=== PATIENT | male | born 1950 | race Caucasian/White ===

== ENCOUNTER 2022-03-04 15:51 | Inpatient (IN) | payer OTHER ==
[~2022-03-04] VITALS: Ht 200.7 cm; Wt 139.8 kg
[2022-03-04 16:26] LABS: BASOPHILS ABSOLUTE AUTO 0.03 K/mm3 (0.00-0.23); BASOPHILS PERCENT AUTO 0 % (0-2); EOSINOPHILS ABSOLUTE AUTO 0.01 K/mm3 (0.00-0.68); EOSINOPHILS PERCENT AUTO 0 % (0-6); Hematocrit 39.5 % (37.0-53.0); IMMATURE GRAN ABSOLUTE AUTO 0.04 K/mm3 (0.00-0.10); IMMATURE GRAN PERCENT AUTO 0 % (0-1); LYMPHOCYTES ABSOLUTE AUTO 1.08 K/mm3 (0.84-5.20); LYMPHOCYTES PERCENT AUTO 9 % (21-46); MONOCYTES PERCENT AUTO 6 % (4-13); Mean Corpuscular HGB 31.9 pg (26.0-34.0); Mean Corpuscular HGB Conc 35.4 g/dL (31.5-36.5); Mean Corpuscular Volume 90 fL (80-100); Mean Platelet Volume 10.8 fL (9.1-12.4); NEUTROPHILS PERCENT AUTO 85 % (41-73); Platelet Count 205 K/mm3 (150-400); RDW Coefficient Variation 12.5 % (11.7-14.2); RDW Standard Deviation 41.1 fL (35.1-46.3); Red Blood Cell Count 4.39 M/mm3 (4.30-5.90); White Blood Cell Count 12.16 K/mm3 (4.00-11.30)
[2022-03-04 16:44] LABS: Albumin, Blood 3.7 g/dL (3.4-5.0); Albumin/Globulin Ratio 1.1 (0.8-1.8); Bilirubin, Total 1.3 mg/dL (0.1-1.0); Bun/Creatinine Ratio 17.7 (12.0-20.0); Calcium, Blood 9.1 mg/dL (8.5-10.1); Creatinine, Blood 0.56 mg/dL (0.60-1.20); Globulin, Blood 3.3 g/dL (2.2-4.0); International Normalized Ratio 1.08; Potassium, Blood 3.7 mmol/L (3.5-5.5); Prothrombin Time Results 11.3 Sec (9.7-11.5)
[2022-03-04] MEDS ORDERED: Lisinopril-Hct1 EAC4 PO (17:22)
[2022-03-04] MEDS ORDERED: HYDROCODONE-AC1 EA18 PO (17:22)
--- NOTE | 2022-03-04 23:15 | NUR ---
ASSUMED CARE OF PATIENT AT APPROXIMATELY 2140 FROM ED NATALY BUSTOS. PATIENT ARRIVED TO PCU VIA STRETCHER; MAX ASSIST TRANSFER WITH SLIDE SHEET FROM ED TO PCU STRETCHER. PATIENT NONVERBAL; ABLE TO TRACK AT TIMES; STUCK TONGUE OUT WHEN ASKED TO SMILE; RIGHT SIDE DEFICIT IN RIGHT ARM AND LEG; NO RESPONSE; RIGHT FACIAL DROOP; NORMAL STRENGTH AND ABLE TO FOLLOW COMMANDS WITH LEFT ARM AND LEGS. PATIENT ARRIVED INCONTINENT OF URINE; GOWN CHANGED AND ATTENDS PLACED; PATIENT APPERED TO BE EMBARRASSED PULLING DOWN GOWN WHEN ATTEND CHANGES. ABLE TO FOLLOW PEN LIGHT WITH BOTH EYES BUT EASILY DISTRACTED. ATTEMPTED TO USE PICTURE BOARD BUT NOT ABLE TO. HOLDS CALL LIGHT IN LEFT ARM BUT DOESNT USE IT. SB ON TELE; OXYGEN SATURATION ABOVE 90% ON ROOM AIR. ADMISSION PARTIALLY COMPLETE; NO HEALTH HISTORY AVAILABLE. IVF STARTED PER ORDER. DAUGHTER GRETCHEN CALLED AND REPORTED SHE IS IN [place] AND WILL BE FLYING IN TOMORROW WITH OTHER FAMILY. PATIENT'S BELONGINGS WERE SENT UP FROM ER IN BELONGING BAG; MEDICATIONS, PHONE, GLASSES, AND WALLET. MEDICATIONS WALKED UP TO PHARMACY AND CURRENTLY BEING HELD. SECURITY CALLED TO TAKE WALLET FOR HOLDING.
--- NOTE | 2022-03-05 00:28 | NUR ---
BLACK WALLET GIVEN TO SECURITY; SLIP NUMBER [id number] PLACED IN CHART
[2022-03-05 04:07] LABS: BASOPHILS ABSOLUTE AUTO 0.03 K/mm3 (0.00-0.23); BASOPHILS PERCENT AUTO 0 % (0-2); EOSINOPHILS ABSOLUTE AUTO 0.05 K/mm3 (0.00-0.68); EOSINOPHILS PERCENT AUTO 1 % (0-6); Hematocrit 38.1 % (37.0-53.0); Hemoglobin 13.2 g/dL (13.5-17.5); IMMATURE GRAN ABSOLUTE AUTO 0.03 K/mm3 (0.00-0.10); IMMATURE GRAN PERCENT AUTO 0 % (0-1); LYMPHOCYTES ABSOLUTE AUTO 1.81 K/mm3 (0.84-5.20); LYMPHOCYTES PERCENT AUTO 18 % (21-46); MONOCYTES PERCENT AUTO 10 % (4-13); Mean Corpuscular HGB 31.1 pg (26.0-34.0); Mean Corpuscular HGB Conc 34.6 g/dL (31.5-36.5); Mean Corpuscular Volume 90 fL (80-100); Mean Platelet Volume 10.7 fL (9.1-12.4); NEUTROPHILS ABSOLUTE AUTO 7.06 K/mm3 (1.96-9.15); NEUTROPHILS PERCENT AUTO 71 % (41-73); Platelet Count 206 K/mm3 (150-400); RDW Coefficient Variation 12.5 % (11.7-14.2); RDW Standard Deviation 41.1 fL (35.1-46.3); Red Blood Cell Count 4.24 M/mm3 (4.30-5.90); White Blood Cell Count 9.98 K/mm3 (4.00-11.30)
[2022-03-05 04:24] LABS: Albumin, Blood 3.4 g/dL (3.4-5.0); Albumin/Globulin Ratio 1.1 (0.8-1.8); Bilirubin, Total 1.4 mg/dL (0.1-1.0); Bun/Creatinine Ratio 15.6 (12.0-20.0); Calcium, Blood 8.8 mg/dL (8.5-10.1); Creatinine, Blood 0.64 mg/dL (0.60-1.20); Globulin, Blood 3.1 g/dL (2.2-4.0); Potassium, Blood 3.5 mmol/L (3.5-5.5); Total Protein, Blood 6.5 g/dL (6.4-8.2)
--- NOTE | 2022-03-05 06:23 | NUR ---
PATIENT SLEPT ABOUT SEVEN HOURS LAST NIGHT OFF AND ON. PATIENT ABLE TO TRACK STAFF BETTER; NO OTHER CHANGES; INCONTINENT OF URINE; Q2H TURN.
--- NOTE | 2022-03-05 17:17 | NUR ---
SHIFT SUMMARY PT HAS BEEN RESTING IN BED THROUGHOUT THE DAY. THIS AM PT DID NOT CONSISTENTLY RESPOND TO STIMULI, AND INCONSISTENTLY FOLLOWED COMMANDS. THIS AFTERNOON PT WAS ABLE TO RECOGNIZE FAMILY MEMBERS AND HAS ATTEMPTED TO TALK THOUGH NO INTELLIGBLE WORDS WERE MADE, JUST INCOHERENT MUMBLES. THIS AM RIGHT ARM AND LEG WERE FLACCID, THE DAY PROGRESSED SOME GROSS REFLEXIVE MOVEMENT WAS NOTED TO BOTH RIGHT ARM AND LEG. PHYSICAL THERAPY PERFORMED AN EVALUATION OF THE PT THIS AM. HEART RATE HAS BEEN A CONSISTENT BRADYCARDIA OF 48-52 BPM, ALL OTHER VITAL SIGNS STABLE.
--- NOTE | 2022-03-06 06:07 | NUR ---
SHIFT SUMMARY PT OPENS EYES TO VERBAL STIMULI, FAMILY AT BEDSIDE AT BEGINNING OF SHIFT. PT HAS SMALL, GROSS MOVEMENTS IN R LEG. NO MOVEMENT/FLACCID IN R ARM. FACIAL DROOPING ON R SIDE. PT ATTEMPTS TO SPEAK BUT HAS GARBLED/INCOMPREHENSIBLE SPEECH. R PUPIL 3 AND SLUGGISH, L PUPIL 3 AND BRISK. PT PROVIDED WITH ORAL CARE Q 4 HRS. TURNED Q [address] AND DRAINING TO GRAVITY. OXYGEN SATURATION MAINTAINED ABOVE 94% ON RA. BP STABLE. HR BRADYCARDIC, 50'S. WHEN PT ASKED IF IN PAIN NODS HEAD "NO." CALL LIGHT WIHIN REACH FOR LEFT HAND. BED ALARM IN PLACE. WILL CONT TO MONITOR UNTIL REPORT GIVEN TO DAYSHIFT RN.
[2022-03-06 12:53] LABS: Cholesterol 214 mg/dL (50-200); HDL Cholesterol 43 mg/dL (>39); LDL/HDL RATIO 3.5; Low Density Lipoprotein Chol 151 mg/dL (0-110); Triglycerides 102 mg/dL (30-160); Very Low Density Lipoprot Chol 20 mg/dL (6-32)
--- NOTE | 2022-03-06 13:06 | NUR ---
PATIENT WAS INDEPENDENT EATING HIS LUNCH. PATIENT WAS OBSERVED EATING INSTRUCTED BY THE RN. FOOD WAS SPILLING OUT OF THE RIGHT SIDE FOR THE FIRST COUPLE BITES, THEN SLOWED DOWN PATIENT WAS EATING. PATIENT WAS ABLE TO EAT 100% OF HIS TRAY AND 240 ML OF MILK.
--- NOTE | 2022-03-06 17:42 | NUR ---
SHIFT SUMMARY PT IS ALERT AND IS UNABLE TO ANSWER ANY ORIENTATION QUESTIONS. PT WORKED WITH PHYSICAL AND OCCUPATIONAL THERAPIES TODAY. PT DOES NOT APPEAR TO BE IN ANY DISTRESS OR DISCOMFORT. FAMILY HAS BEEN AT BEDSIDE SEVERAL TIMES THROUGHOUT THE DAY. PT CONVERTED FROM SINUS BRADYCARDIA TO ATRIAL FIBRILLATION AT APPROXIMATELY 0800. BLOOD PRESSURE HAS SLOWLY FALLEN THROUGHOUT THE DAY FROM 170-125 SYSTOLIC. PT APPEARS FRUSTRATED WHEN ATTEMPTING TO COMMUNICATE THOUGH THEY ARE WILLING PARTICIPANTS IN CARES.
--- NOTE | 2022-03-06 18:21 | NUR ---
PATIENT WAS OBSERVED WHILE EATING DINNER TO MAKE SURE HE DIDN'T ASPIRATE. PATIENT WAS ENCOURAGED TO USE THE SPOON, BUT PREFERRED SIPPING HIS PUREE DIET. MILD COUGHS OCCURRED WHILE EATING. PATIENT TOOK IT SLOWER THEN LUNCH, AND WAS ABLE TO PUSH THE TABLE AWAY WHEN HE FINISHED. PATIENT IS SITTING UP IN BED AFTER HIS MEAL, ORDERS FROM SPEECH THERAPY. CALL LIGHT IN REACH.
--- NOTE | 2022-03-07 06:08 | NUR ---
SHIFT SUMMARY PT ALERT AND ORIENTED X 4. HR STABLE, AFIB T/O SHIFT. BP STABLE. MAP ABOVE 65. OXYGEN SATURATION MAINTAINED ABOVE 95% ON RA. PT REFUSING Q 2 TURNS AT TIMES. RANGE OF MOTION PERFORMED T/O SHIFT ON R ARM AND R LEG. CONDOM CATH IN PLACE AND DRAINING. NO NEURO CHANGES T/O SHIFT. R ARM FLACID, R LEG HAS MINIMAL GROSS MOVEMENT. R PUPIL SLUGGISH. FULL RANGE OF MOTION IN L ARM AND L LEG. L PUPIL BRISK. PT FOLLOWS DIRECTIONS. FAMILY AT BEDSIDE AT BEGINNING OF SHIFT. DAUGHTER GRETCHEN UPDATED AT END OF SHIFT ON PT STATUS. BED ALARM IN PLACE. CALL LIGHT WITHIN REACH OF L HAND. WILL CONT TO MONITOR UNTIL REPORT GIVEN TO POLO RN.
[2022-03-07 15:44] LABS: Influenza A, PCR NEGATIVE (NEGATIVE); Influenza B, PCR NEGATIVE (NEGATIVE); Resp Syncytial Virus, PCR NEGATIVE (NEGATIVE); SARS-Cov-2 (COVID-19) PCR, MMC NEGATIVE (NEGATIVE)
--- NOTE | 2022-03-07 17:55 | NUR ---
SHIFT SUMMARY SPEECH IS INCOMPREHENSIBLE AND GARBLED. HE APPEARED TO RECOGNIZE/BE FAMILIAR WITH DAUGHTERS LINN AND CARLITO WHO WERE AT BEDSIDE THIS AM. HE APPEARS FRUSTRATED WITH COMMUNICATION BOARD AND DID NOT WANT TO USE IT DURING SHIFT. NO CHANGES REGARDING RIGHT SIDED DEFICIT. VITAL SIGNS ARE STABLE. PER AM TELE REPORT PT REMAINS IN AFIB 90-100 AND HE HAS REMAINED ON ROOM AIR WITH SPO2 >95%. PHYSICAL THERAPY, OCCUPATIONAL THERAPY, AND SPEECH THERAPY WERE AT BEDSIDE DURING SHIFT. Q2 TURNING NOT PERFORMED DUE TO THERAPY SESSIONS WELL PT BEING REPOSITIONED AND PERFORMING THERAPY EXERCISES DURING THE AM. PT REPOSITIONED Q2 TO PREVENT SKIN BREAKDOWN AFTER THERAPY SESSIONS COMPLETED. ROM ON RIGHT SIDE PERFORMED BY THIS NURSE DURING ORAL CARE. PT IS COOPERATIVE IN LIFTING RIGHT HAND WITH HIS LEFT HAND TO PERFORM ROM. CONDOM CATHETER IN PLACE AND DRAINING APPROPRIATELY. RIGHT SIDE FOOT DROP BOOT IN PLACE. IV IN LEFT HAND IS SALINE LOCKED. HE WAS A FEEDING ASSIST. NO OTHER ACUTE CHANGES NOTED. WILL CONTINUE TO MONITOR UNTIL REPORT GIVEN.
--- NOTE | 2022-03-08 06:00 | NUR ---
VENEER DRIER SUMMARY PT IS ALERT BUT IS UNABLE TO COMMUNICATE VERBALLY DUE TO APHASIA. PT'S R ARM AND LEG STILL FLACCID. PT DOES FOLLOW COMMANDS AND IS ABLE TO USE HIS LUE TO PERFORM TASKS EVEN USING HIS REMOTE TO CHANGE CHANNELS ON THE TV. PT ATTEMPTS TO COMMUNICATE VERBALLY BUT DUE TO GARBLED SPEECH IS UNABLE AND BECOMES FRUSTRATED. PT REFUSED REPOSITIONING THIS SHIFT BUT DID ALLOW US TO BOOST HIM UP INTO THE BED MULTIPLE TIMES. VSS AND AFEBRILE. O2 SATS >92% ON RM AIR. PT ABLE TO SLEEP FOR MOST OF THE NIGHT W CALL LIGHT WITHIN REACH. WILL REPORT TO ONCOMING RN.
--- NOTE | 2022-03-08 17:07 | NUR ---
REPORT CALLED TO ARIANA INGRAM. PT TO BE TRANSPORTED TO ROOM 313, FAMILY MADE AWARE OF MOVE, ALL BELONGINGS SENT WITH PT.
--- NOTE | 2022-03-08 18:16 | NUR ---
SHIFT SUMMARY PT WAS TRANSFERRED TO THE FLOOR WITH ALL HIS BELONGINGS AND HIS DAUGHTER, PT HAS APHASIA AND IS UNABLE TO SPEAK FOR HIMSELF, DAUGHTER HAVE A TENDENCY TO TALK OVER AND MAKE DECISIONS FOR THE PT THOUGH ENCOURAGED TO LET HIM BE SELF SUFFICIENT. HE MAKE FACIAL EXPRESSIONS INDICATING YES OR NO. PT FAMILY MEMBERS WERE CONCERNED "HE WAS BEING LEFT BACK HERE TO BE FORGOTTEN. INFORMED OF OUR HOURLY ROUNDING RULE AND OFFERED A TAB ALARM FOR EASIER USE OF A CALL LIGHT BUT THEY REFUSED. CLINICAL COORDINATER BROUGHT IN TO HELP THERAPUTICALLY COMMUNICATE WITH FMILY. IT WAS DECIDED THAT DUE TO STAFFING THE PT WOULD STAY IN THE CURRENT ROOM UNTIL THE AM AND THEN BE MOVED TO A BETTER ROOM. PT ALSO MOVED BACK TO PUREE DIET DUE TO FAMILY CONCERN OVER CHOKING.
--- NOTE | 2022-03-09 05:33 | NUR ---
PT IS ALERT, DYSPHASIC, ABLE TO ANSWER YES OR NO QUESTIONS THE BEST. R SIDE FLACCID WITH FACIAL DROOP, CONDOM CATH PLACED FOR INCONTINENCE, SOFT TOUCH CALL LIGHT PLACED.
--- NOTE | 2022-03-09 16:09 | NUR ---
TRANSFER PT WAS TRANSFERRED TO ROOM 364 PER [facility] REQUEST FOR LIFT ACCESS AND SO "HE WON'T BE SO ISOLATED BACK HERE" PT WAS UPSET ABOUT HAVING TO MOVE BUT COMPLIANT. REPORT GIVEN TO NATALY MCCRARY AND ALL PT BELONGINGS BROUGHT TO NEW ROOM.
--- NOTE | 2022-03-09 18:03 | NUR ---
SHIFT SUMMARY PATIENT TRANSFERRED FROM [facility]. PATIENT SETTLED INTO ROOM. PATIENT DENIES PAIN, NAUSEA, AND SHORTNESS OF BREATH. PATIENT IS A LIFT FOR TRANSFERS. PATIENT WAS ABLE TO STAND WITH PT TODAY. PATIENT IS A PUREE DIET, NECTAR THICK LIQUIDS. PATIENT IS 1:1 SUPERVISION FOR MEALS. PATIENT HAS SOME APHASIA AND COMMUNICATES WITH HAND GESTURES AND FACIAL EXPRESSIONS. PATIENT IS EATING AND DRINKING WELL. PATIENT IS VERY PLEASANT AND COOPERATIVE WITH CARE.
--- NOTE | 2022-03-10 05:25 | NUR ---
SHIFT SUMMARY ASSUMED CARE OF PT AROUND 1900. ORIENTATION DIFFICULT TO ASSESS DUE TO APHASIA. PT ABLE TO COMMUNICATE WITH HANDS AND NODS. PT R SIDE IS FLACCID. FOOT DROP SHOE ON T/O THE NIGHT. HEART SOUNDS REGULAR. LUNG SOUNDS CLEAR. PT WAS INCONTIENT T/O THE NIGHT. PT HAD NO ACUTE EVENTS. FAMILY WAS EDUCATED ABOUT VISITING HOURS.
--- NOTE | 2022-03-10 17:46 | NUR ---
SHIFT SUMMARY PATIENT DENIES PAIN, NAUSEA, AND SHORTNESS OF BREATH. PATIENT IS A LIFT FOR TRANSFERS. PATIENT HAS EXPRESSIVE APHASIA AND COMMUNICATES VIA HAND GESTURES AND SOME FACIAL EXPRESSIONS. PT AND OT WORKED WITH PATIENT THIS MORNING. THEY WRE ABLE TO GET PATIENT TO A RECLINER. PATIENT TOLERATED WELL. AROUND 11:30 PATIENT HAD A FALL. PATIENT WAS FOUND BY OT SITTING ON FLOOR NEXT TO BED. NO APPARENT INJURIES. CHARGE NURSE NOTIFIED. DR NOTIFIED. FAMILY NOTIFIED. PATIENT BACK INTO BED VIA LIFT. PATIENT IS EATING AND DRINKING WELL. PATIENT HAD MANY FAMILY MEMBERS VISIT TODAY. PATIENT IS PLEASANT AND COOPERATIVE WITH CARE.
--- NOTE | 2022-03-11 05:48 | NUR ---
PT IS ALERT, CAN ANSWER YES OR NO QUESTIONS UNABLE TO FORMULATE WORDS. R SIDE FACIAL DROOP, R ARM AND LEG FLACCID. LIFT TO TRANSFER. MEDS TO BE GIVEN CRUSHED IN SAUCE OR PUDDING. PUREE NECTAR THICK LIQUIDS.
--- NOTE | 2022-03-11 10:00 | NUR ---
PT PLEASANT COOP. FOLLOWS DIRECTION. RECOGNIZES FAMILY, FLACID ON RT. ANSWERS / NODS APPROP TO QUESTIONS. FOOT HAD COUPLE OF LIGHT TWITCHES WHILE DAUGHTER RUBBING LOTION ON FEET. LEFT SIDE IS WEAK. PT DENIES PAIN OR FEELING ON FULL RT SIDE. ANSWERS SOME QUESTIONS WITH NODS, MOSTLY YES, SOME NO. H/R IRREG, NO MURMUR NOTED. NO TELE. LUNGS CLEAR, RESP EASY, UNLABORED , ON R.A. BT 4 LOOSE STOOL REPORTED BY AIDE. VOIDS INCONT IN ATTENDS. BED IN LOW POSITION, CALL LITE IN REACH, CALLS APPROP
--- NOTE | 2022-03-11 11:45 | NUR ---
RT ARM FLACID. MOTIONED NO FEELING. LEFT MOSTLY FLACID. DID MOTION NO FEELING. DID OBSERVE PT MOVE RT LEG SLIGHTLY DURING DAUGHTER APPLY LOTION.
--- NOTE | 2022-03-11 18:31 | NUR ---
PT PLEASNT TODAY, UNABLE TO TALK WELL TO COMMUNICATE. NICOLETTE RICHARD. DOES HAVE WRITING BOARD, BUT NOT PROFICIENT. DAUGHTERS HERE TODAY. DID GIVE SLIGHT MOVEMENT IN RT LEG TODAY. ENCOURAGED TO MOVE FINGERS AND TOES. HAVING LOOSE STOOLS, NO ABX. WILL ASK FOR PROBIOTIC. NO OTHER CONCERNS NOTED. BED IN LOW POSITION, CALL LITE IN REACH, BED ALRM ON FOR SAFETY
--- NOTE | 2022-03-12 05:55 | NUR ---
PT IS ALERT, ORIENTED BUT IS UNABLE TO FORMULATE WORDS AT THIS TIME. SHAKES AND NODS HEAD FOR YES OR NO QUESTIONS. RIGHT SIDE ARM AMD LEG FLACCID WITH RIGHT SIDE FACIAL DROOP. INCONTINENT OF URINE AND STOOL THIS SHIFT. LOOSE STOOL X1.
--- NOTE | 2022-03-12 18:04 | NUR ---
TOOK OVER PT CARE AT 1525. NO ACUTE CHANGES AT THIS TIME. PT RESTING IN BED. R SIDE EFFECTED BY CVA. CALL LIGHT WITHIN REACH WILL CONTINUE TO MONITOR.
[2022-03-13 04:54] LABS: Albumin, Blood 3.1 g/dL (3.4-5.0); Anion Gap 7 mmol/L (6-16); Blood Urea Nitrogen 14 mg/dL (8-24); Bun/Creatinine Ratio 20.2 (12.0-20.0); CO2, Blood 27 mmol/L (21-32); Calcium, Blood 8.8 mg/dL (8.5-10.1); Chloride, Blood 106 mmol/L (98-108); Creatinine, Blood 0.69 mg/dL (0.60-1.20); Glomerular Filtration Rate 100 (60-); Glucose, Blood 167 mg/dL (70-99); Potassium, Blood 4.3 mmol/L (3.5-5.5); Sodium, Blood 140 mmol/L (136-145)
--- NOTE | 2022-03-13 05:10 | NUR ---
PT IS ALERT, DYSPHAGIC; UNABLE TO MAKE WORDS OR MOVE RIGHT SIDE OF BODY AFTER RECENT CVA. LOOSE STOOL X1 THIS SHIFT. PT IS INCONTINENT OF BOWEL AND BLADDER. BANANA FLAKES STARTED THIS SHIFT.
--- NOTE | 2022-03-13 17:08 | NUR ---
SHIFT SUMMARY PT WORKED WITH PHYSICAL THERAPY & OCCUPATIONAL THERAPY TODAY. STOOD AND TO SIDE OF BED WITH THEM. PT REMAINS A MAX 2P ASSIST FOR BED MOBILITY FROM HIS FLACCID R SIDE. PT HELPS PARTICIPATE IN CARE & BED MOBILITY. BLISTER TO R FOOT MARKED & PHOTOGRAPHED. DR. MARIA NOTIFIED THAT THE FAMILY REPORTS IT HAS WORSENED. DR. MARIA ALSO GAVE ORDER TO LEAVE IV OUT. A SMALL AREA OF SKIN BREAKDOWN LEFT WHERE THE BASE OF THE IV IS. THIS AREA WAS CLEANED & BANDAGED. NO OTHER ACUTE CHANGES IN ASSESSMENT AT THIS TIME. VS REVIEWED. PT RESTING IN BED. CALL LIGHT IN REACH.
--- NOTE | 2022-03-14 05:09 | NUR ---
PT IS ALERT, COMUNICATES BY NODDING HEAD, UNABLE TO FORM WORDS. RIGHT ARM AND LEG FLACCID, R FACIAL DROOP. INCONTINENT WEARING ATTENDS. NO DIARRHEA SO FAR THIS SHIFT.
--- NOTE | 2022-03-14 17:54 | NUR ---
SHIFT SUMMARY PT RECIEVED BEDBATH TODAAY. DRESSING TO R INNER HEEL REPLACED. NO OTHER ACUTE CHANGES IN ASSESSMENT AT THIS TIME. VS REVIEWED. PT RESTING IN BED. CALL LIGHT IN REACH. SHAKES HEAD NO WHEN ASKED IF HE NEEDS ANYTHING. AWAITING SNF PLACEMENT.
--- NOTE | 2022-03-15 04:01 | NUR ---
MANAGER SOCIAL SUMMARY AWAKE AT INTERVALS. CHANGED DUE TO INCONT A FEW TIMES. REPOSITIONED WITH ASSISTANCE OFTEN. ABLE TO ASSIST WITH LEFT SIDE, RIGHT SIDE IS TOTALLY FLACCID. DENIES FEELING IN RIGHT SIDE WELL. ASPIRATION PRECAUTIONS MAINTAINED. THICKENED LIQUIDS AND HOB ELEVATED WHEN DRINKING. DAUGHTER CALLED FOR UPDATE. NO NOTED S/S ACUTE DISTRESS. CALL LIGHT IN REACH
--- NOTE | 2022-03-15 18:44 | NUR ---
SHIFT SUMMARY- PT ALERT, ORIENTED TO SELF, SPEAKS NONSENSICALLY. DIFFICULT TO DETERMINE ANY OTHER OORINETATION D/T INABILITY TO COMMUNICATE EFFECTIVELY. RIGHT SIDE FLACID. PT REFUSED MORNING MEDICATIONS, PHYSICAL THERAPY ATTEMPTED TO GET HIM UP TO A CHAIR AND HE DECLINED TO WORK WITH THEM, HE REFUSED TO ALLOW OT TO PERFORM ROM EXERCISES. PT DID FEED HIMSELF 100% OF EACH MEAL TODAY, HE NEEDS TO BE MONITORED FOR SAFETY WHILE EATING. MEDS TO BE CRUSHED IN APPLESAUCE PER ST. PT IN BED, HAS DECLINED TO ALLOW STAFF TO MOVE HIM SEVERAL TIMES T/O THE DAY.
--- NOTE | 2022-03-16 05:45 | NUR ---
PT WITH SEVERE EXPRESSIVE APHASIA. PT UNABLE TO VERBALLY COMMUNICATE. PT ESTELLA TO MAKE GESTURES AND HAND MOTIONS TO WHAT HE WANTS AND DOESN'T WANT. PT REFUSED NIGHT MEDICATIONS. EDUCATED PT ON IMPORTANCE OF TAKING ELIQUIS TO PREVENT ANOTHER STROKE HOWEVER PT SHAKING HAND AND HEAD AND POINTING TOWARDS FLACCID RIGHT ARM/LEG. TRIED TO USED BOARD TO COMMUNICATE WITH PT HOWEVER HE PUSHED THAT AWAY. HARD TO CORRECTLY ASSESS BUT PT SEEMS TO BE HOPELESS IN HIS CURRENT SITUATION. AWARE OF PT REFUSING ELIQUIS. PER REPORT PT REFUSED ALL MEDICATIONS DURING THE DAY AND PT/OT. WILL CONTINUE TO ENCOURAGE PT. OTHERWISE NO NEW CHANGES NOTED OVERNIGHT.
--- NOTE | 2022-03-16 16:22 | NUR ---
Pt has been refusing therapy the past 2 days, and it is becoming a general concern that pt may not qualify for IRU. He is unable to use his R side, completely flaccid. I placed a call to his daughter Daniela to discuss options if pt continues to refuse to work with PT/OT. Daniela voiced her frustrations as something "the hospital should be responsible for". I gently explained the CM have been submitting patient to may different places, both IRU and SNF, and ultimately don't have a say in who will or won't accept him as a patient. She ended the conversation stating she would have to talk to her sister about this, and decide what they will do if he isn't accepted by IRU. Palliative will remain involved to make supportive visits with family.
--- NOTE | 2022-03-16 19:26 | NUR ---
SHIFT SUMMARY- PT CONTINUED TO DECLINE MEDICATIONS AND SSOME OF THE THERAPIES. PT IS MOSTLY COOPERATIVE WITH CARE. PLAN IS IRU DISCHARGE TO [place] POSSIBLY TOMORROW. PALLIATIVE CARE CONSULTED FOR ADVANCED CARE PLANNING. BEDSIDE REPORT CCOMPLETED WITH NIGHT RN NO S&S OF DISTRESS PT IN BED.
--- NOTE | 2022-03-17 05:59 | NUR ---
PT WITH SEVERE EXPRESSIVE APASHIA AND UNABLE TO VERBALLY COMMUNICATE. UNSUCCESSFUL ATTEMPTS AT USING PICTURES OR BOARD TO COMMUNICATE WITH PT HE PUSHES THEM AWAY. PT REFUSED MEDICATIONS. PT BROTHER NAYE CALLED AND WANTED UPDATED. PER BROTHER PT HAS HX OF REFUSING TO TAKE MEDICATIONS AND THIS IS NOT NEW. NAYE ([phone]) REQUESTING TO BE NOTIFIED IF PT IS TRANSFERRED TODAY IF HE IS NOT HE WILL DRIVE TO [place] ON SUNDAY TO ASSIST WITH PT AND ENCOURAGE HIM TO TAKE MEDS/PARTICIPATE IN THERAPY. PT ALSO REFUSED TURNING AND PUSHING AGAINST US WITH HIS LEFT ARM. WILL CONTINUE TO PROVIDE CARE TO BEST PT ALLOWS.
[2022-03-17 11:53] LABS: Influenza A, PCR NEGATIVE (NEGATIVE); Influenza B, PCR NEGATIVE (NEGATIVE); Resp Syncytial Virus, PCR NEGATIVE (NEGATIVE); SARS-Cov-2 (COVID-19) PCR, MMC NEGATIVE (NEGATIVE)
--- NOTE | 2022-03-17 19:48 | NUR ---
PATIENT IS ALERT AND ORIENTED. HE IS REFUSING MEDICATIONS, REPOSITIONING AND THERAPY. INCONTINENT OF URINE AND STOOL, ATTENDS IN PLACE. PATIENT DOES ALLOW STAFF TO CHANGE HIS ATTENDS. RN CALLED THE PATIENT'S DAUGHTER AND HAD HER TALK ON THE PHONE WITH THE PATIENT. THE PLAN IS FOR FAMILY TO VISIT HIM TOMORROW
--- NOTE | 2022-03-18 03:37 | NUR ---
PATIENT DID APPEAR WITHDRAWN EARLY IN THE EVENING, AND DID REFUSE HIS MEDICATIONS. AT AROUND 2300, DON WOKE AND WAS LOOKING AND WAVING OUT OF HIS DOOR. HE WAS VERY PLEASANT AND COOPERATIVE WITH THE CHANGING PROCESS, AND WAS EVEN ABLE TO PROVIDE A GREAT DEAL OF ASSISTANCE WITH TURNING. SACRAL AREA IS INTACT AND NO LONGER RED. STATED ABOVE, PATIENT WAS ABLE TO ASSIST AND COOPERATE WITH STAFF FOR EVERY TWO HOUR POSITION CHANGES.
--- NOTE | 2022-03-18 09:55 | NUR ---
pt laying in bed with pillow next to head, he denies pain, states he's fine, refusing po meds, right facial droop, moves left side without diff, unable to move right arm or leg, lungs are clear dim in bases, resp even and unlabored, no cough noted, hrr, no edema noted, ppp+2, cap refill <3sec, vs stable, afebrile, btx4, abd flat soft nontender, voids via briefs, skin c/w/d, pupils a bit sluggish, call light in reach.
--- NOTE | 2022-03-18 14:33 | NUR ---
Family in room attempting to get pt to take his po meds. pt is adimantly refusing. he was changed and preventative mepilex was applied to coccyx. turned on side. call light in reach, family at bedside.
--- NOTE | 2022-03-18 17:11 | NUR ---
notified by nursing pt refusing medications at time and not working much with physical therapy. Family at bedside wanted to review pt. Stated he has a long history of being contentious and fearful of medical care. They usually have to go with him and talk him into care. They feel he was reahabing better when family was present and encouraging him. The had to go back to [place] and [place]. They have a friend who is a retired nurse and is helping them with decisions she worked in neuro unit. They can see him regularly with he is in [place]. They have discussed that if he does not rehab well the will stop and make him comfortable but the y feel he may improve and want to try.
--- NOTE | 2022-03-18 18:18 | NUR ---
pt has refused meds even with family working with him to take them, asked pallative to come speak with them as they were getting upset that he is refusing. he has refused to turn at times, call light in reach.
--- NOTE | 2022-03-19 07:35 | NUR ---
DON CONTINUES TO REFUSE HS MEDICATIONS. HE GAVE NO INDICATION OF PAIN OR DISCOMFORT, AND USING THE PICTURE "BOARD" IN THE ROOM, INDICATED MUCH WHEN ASKED ABOUT HIS COMFORT LEVEL. HE HAD A MEDIUM SOFT BM, AND WAS INCONTINENT OF URINE TWICE OVERNIGHT. PATIENT PARTICIPATES IN TURNING IN BED FOR POSITION AND BRIEF CHANGES. SKIN INTACT EXCEPT RED (BLANCHABLE) AREA ON SACRUM COVERED BY MEPILEX, AND RESOLVING BLISTER RIGHT HEEL INSIDE PROTECTIVE BOOT.
--- NOTE | 2022-03-19 08:00 | NUR ---
pt laying in bed, offered his medications this am, he shook his head no, he will cooperate with being turned and changed, a/ox3, but speech is completely garbled, lungs are clear, dim in bases, on r/a, resp even and unlabored, no cough noted, hrr, no edema noted, ppp+2, cap refill<3sec, vs stable, afebrile, btx4, abd flat soft nontender, incont of urine and stool, briefs in place, has mepilex on coccyx for prevention, right side is flacid, right facial droop, attempts to assist with turning and changing using left leg, skin has a blister on right foot, and a boot for foot drop, swallows without diff, call light in reach.
--- NOTE | 2022-03-19 18:02 | NUR ---
pt has had an uneventful day today with being turned and changed as needed, continues to refuse medications, family at bedside. call light in reach.
--- NOTE | 2022-03-20 07:43 | NUR ---
71 year old Male with acute stroke with rt sided hemiparesis continues to refuse his anticoagulant & repositioning. He raises fist to this RN when stroke repositioning & turning PT off lt side. Despite reapproaching multiple times PT refuses cares & RX.
--- NOTE | 2022-03-20 08:00 | NUR ---
Pt laying in bed eating breakfast, he is awake a/ox3, uncooperative with care, refusing meds this am, adamantly shook his head no. He did allow us to change his brief and assess him, lungs are clear in upper joshi, dim in bases, r/a, no cough noted, feeds himself when tray is set up for him, hrirr, distant, no edema noted, ppp+1, cap refill<3sec, vs stable, afebrile, btx4, abd flat soft nontender, incont of urine and stool, briefs in place, skin has a wound to right heel with dressing in place, and between his pinky toe and next toe is a small wound that is deep, dressing in place, foot boot in place, unable to move right side, upper and lower ext, and has facial droop on right side, cannot form words, gestures with his left hand/arm, shakes head yes/no, refusing to write, pupils a bit sluggish, swallows without diff, call light in reach.
--- NOTE | 2022-03-20 18:42 | NUR ---
pt has had family in to visit, he is allowing us to change and turn him, feeding himself dinner, no acute changes this shift. call light in reach.
--- NOTE | 2022-03-21 07:51 | NUR ---
71 year old PT with acute CVA with rt hemiparesis continues to refuse rx to tx CVA prevent further CVA & also he has refused therapies. has been asphasic & he gestures & has incomprehensible speech. PT height listed as 6 ft 7 in & Wt aS 300 pOUNDS. PT does allow attends changes but will no shift WT of allow stroke positioning. DC planning to stroke rehab unit in [facility] test done this AM results pending.
[2022-03-21 07:54] LABS: Influenza A, PCR NEGATIVE (NEGATIVE); Influenza B, PCR NEGATIVE (NEGATIVE); Resp Syncytial Virus, PCR NEGATIVE (NEGATIVE); SARS-Cov-2 (COVID-19) PCR, MMC NEGATIVE (NEGATIVE)
[2022-03-21] MEDS ORDERED: ELIQUIS5 M2 PO (12:07)
[2022-03-21] MEDS ORDERED: ACET325 PO (12:07)
[2022-03-21] MEDS ORDERED: BANATROL PLUS1 EAC1 PO (12:07)
[2022-03-21] MEDS ORDERED: ASPI81CH PO (12:07)
[2022-03-21] MEDS ORDERED: ATOR80 PO (12:07)
[2022-03-21] MEDS ORDERED: METF500 PO (12:08)
--- NOTE | 2022-03-21 12:23 | NUR ---
PATIENT ALLOWED STAFF TO CHANGE HIS ATTENDS. PATIENT ALLOWED STAFF TO REPOSITION HIM WITH A PILLOW UNDER HIS RIGHT HIP. PATIENT WROTE ON A WHITE BOARD "DON HOME" WHEN ASKED HIS WISHES. THIS RN CALLED THE PATIENT'S DAUGHTER ON HIS ROOM PHONE AND SHE SPOKE WITH HIM ABOUT TRANSFERRING TO [facility] AND ASKED HIM TO BE COMPLIANT AND SAID FAMILY WILL VISIT HIM THERE AND THAT THE PLAN IS TO MOVE INTO HER HOUSE ONCE DISCHARGED FROM IRU. REPORT CALLED TO [facility], IVANA. PATIENT LEFT WITH [facility] VIA GURNEY.
--- NOTE | 2022-03-21 13:12 | NUR ---
Spiritual care visit conducted. Pt acknowledges that he has frustrations and fears. He also points to "yes" about being very depressed. He can not commuicate the reasons for these feelings except that he agrees with feeling trapped, limited and fearful of the future. I normalize his feelings, and provide gentle rehab/pre vocational counselor, prayer and anxiety containment. Pt responds well and shows signs of catharsis and greater peace.
== END 2022-03-21 12:17 | DRG 64 ==
LOC: ER 15:51 → PCU 21:05 → MEDS 03-08 17:16
PROVIDERS: Internal Medicine; Physician Assistant; ADMIT Internal Medicine
DX: I63.312 Cerebral infarction due to thrombosis of left middle cerebral artery (principal); G93.6 Cerebral edema; G81.01 Flaccid hemiplegia affecting right dominant side; I10 Essential (primary) hypertension; R19.7 Diarrhea, unspecified; I48.0 Paroxysmal atrial fibrillation; R29.719 NIHSS score 19; R00.1 Bradycardia, unspecified; R13.10 Dysphagia, unspecified; R29.810 Facial weakness; Z20.822 Contact with and (suspected) exposure to COVID-19; R27.0 Ataxia, unspecified; R47.01 Aphasia; Z79.811 Long term (current) use of aromatase inhibitors; Z79.899 Other long term (current) drug therapy
CPT/HCPCS: 0241U; 36415; 70450; 70496; 70498; 74230; 80053; 80061; 80069; 82947; 84484; 85025; 85610; 85730; 92507; 92523; 92526; 92610; 92611; 93005; 93010; 97110; 97112; 97162; 97166; 97530; 97535; 99285-25; A9270; C8929; J1650; J7030; Q9957; Q9967